=== PATIENT | female | born 1980 | race Two or more races ===

== ENCOUNTER 2024-09-06 21:42 | Emergency (ER) | payer OTHER ==
[~2024-09-06] VITALS: Ht 162.6 cm; Wt 106.8 kg
--- NOTE | 2024-09-06 22:45 | ED.PDOC ---
HPI Comments 44-year-old female presents with a chief complaint of chest pain x onset 1600 this afternoon. Patient states that her pain is localized to her left chest, non-radiating, describes as throbbing, and rates her pain a 5/10. Patient mentions that the onset of her chest pain began at 1600 this afternoon and is spontaneous in onset. Patient states that the pain is constant and is not exacerbated by movement. No other symptoms or modifying factors present at this time. Chief Complaint: Chest Pain Time Seen by MD: 21:59 Reviewed Notes: Medications, Allergies Allergies: Coded Allergies: NO KNOWN ALLERGIES (Unverified , 09/06/24) Home Meds Active Scripts Ibuprofen Micronized (Ibuprofen) 600 Mg Tab, 600 MG PO Q6HP PRN, #30 TAB Prov:SOFIYA CHRISTOPHER MD 09/07/24 Information Source: Patient Mode of Arrival: Ambulatory Severity: Moderate Timing: Hours Duration: Since onset Prehospital treatment: None Location: Chest (L) Radiation: No Radiation Quality: Sharp Onset: At Rest Cardiac Risk Factors: None PE Risk Factors: None History of: None Past Medical History PAST MEDICAL HISTORY: Kidney Stones 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 Family History Family History: Reviewed,noncontributory to illness Social History Smoker: Non-Smoker Alcohol: Denies ETOH Use Drugs: Denies Drug Use Lives In: Home Constitutional: denies: chills, diaphoresis, fatigue, fever, malaise, sweats, weakness, others EENTM: denies: blurred vision, double vision, ear bleeding, ear discharge, ear drainage, ear pain, ear ringing, eye pain, eye redness, hearing loss, mouth pain, mouth swelling, nasal discharge, nose bleeding, nose congestion, nose pain, photophobia, tearing, throat pain, throat swelling, voice changes, others Respiratory: denies: cough, hemoptysis, orthopnea, SOB at rest, shortness of breath, SOB with excertion, stridor, wheezing, others Cardiovascular: reports: chest pain; denies: dizzy spells, diaphoresis, Dyspnea on exertion, edema, irregular heart beat, left arm pain, lightheadedness, palpitations, PND, syncope, others Gastrointestinal: denies: abdomen distended, abdominal pain, blood streaked bowels, constipated, diarrhea, dysphagia, difficulty swallowing, hematemesis, melena, nausea, poor appetite, poor fluid intake, rectal bleeding, rectal pain, vomiting, others Genitourinary: denies: abnormal vagina bleeding, burning, dyspareunia, dysuria, flank pain, frequency, hematuria, incontinence, pain, , vagina discharge, urgency, others Neurological: denies: dizziness, fainting, headache, left sided numbness, left sided weakness, numbness, paresthesia, pre-existing deficit, right sided numbness, right sided weakness, seizure, speech problems, tingling, tremors, weakness, others Musculoskeletal: denies: back pain, gout, joint pain, joint swelling, muscle pain, muscle stiffness, neck pain, others Integumetry: denies: bruises, change in color, change in hair/nails, dryness, laceration, lesions, lumps, rash, wounds, others Allergic/Immunocompromised: denies: Difficulty Healing, Frequent Infections, Hives, Itching, others Hematologic/Lymphatic: denies: anemia, blood clots, easy bleeding, easy bruising, swollen glands, others Endocrine: denies: excessive hunger, excessive sweating, excessive thirst, excessive urination, flushing, intolerance to cold, intolerance to heat, unexplained weight gain, unexplained weight loss, others Psychiatric: denies: anxiety, bipolar disorder, depression, hopeless, panic disorder, schizophrenia, sleepless, suicidal, others All Other Systems: Reviewed and Negative Physical Exam General Appearance: No Apparent Distress HEENT: Normal ENT Inspection Neck: Full Range of Motion, Normal Inspection Respiratory: Lungs Clear, No Accessory Muscle Use, No Respiratory Distress, Normal Breath Sounds Cardiovascular: No Edema, No JVD, Regular Rate/Rhythm Breast Exam: Deferred Gastrointestinal: Non Tender, Soft Genitalia: Deferred Pelvic: Deferred Rectal: Deferred Extremities: No calf tenderness, Normal inspection, Normal range of motion, Non-tender, No pedal edema Neurologic: Alert, No Motor Deficits, Normal Affect, Normal Mood, No Sensory Deficits Cerebellar Function: NOT DONE Reflexes: NOT DONE Skin: Dry, Normal Color, Warm Lymphatic: NOT DONE EKG EKG : Comments Sinus rhythm, rate 91, normal intervals, normal axis, normal QRS, no ST/T changes. Was a procedure done? Was a procedure done?: No CP Differential Dx Differential Diagnosis: Angina, Anxiety / Panic Attack, Heart Failure, DE Differential Diagnosis: Chest Wall Pain, Esophageal reflux/spasm, Gastritis, Pericarditis, Pneumonia X-Ray, Labs, Meds, VS Vital Signs Date Time Temp Pulse Resp B/P (MAP) Pulse Ox O2 Delivery O2 Flow Rate FiO2 09/06/24 23:46 77 20 98 Room Air* 0 21 09/06/24 23:40 98.1 77 20 114/48 (70) 98 98.1 09/06/24 21:49 97.6 91 18 116/68 (84) 98 09/06/24 21:47 91 Lab Test 09/06/24 22:43 09/06/24 21:51 Range/Units Troponin I High Sensitivity < 3 L < 3 L </=34 ng/L White Blood Count 8.9 4.4-10.8 10^3/uL Red Blood Count 4.37 4.0-5.20 10^6/uL Hemoglobin 9.5 L 12.2-16.2 g/dL Hematocrit 31.1 L 36.0-46.0 % Mean Corpuscular Volume 71.2 L 80.0-100.0 fL Mean Corpuscular Hemoglobin 21.7 L 28.0-32.0 pg Mean Corpuscular Hemoglobin Concent 30.4 L 32.0-36.0 g/dL Red Cell Distribution Width 18.4 H 11.8-14.3 % Platelet Count 289 140-450 10^3/uL Mean Platelet Volume 8.6 6.9-10.8 fL Neutrophils (%) (Auto) 55.9 37.0-80.0 % Lymphocytes (%) (Auto) 34.3 10.0-50.0 % Monocytes (%) (Auto) 6.9 0.0-12.0 % Eosinophils (%) (Auto) 1.9 0.0-7.0 % Basophils (%) (Auto) 1.0 0.0-2.0 % Neutrophils # (Auto) 5.0 1.6-8.6 10 ^3/uL Lymphocytes # (Auto) 3.1 0.4-5.4 10 ^3/uL Monocytes # (Auto) 0.6 0-1.3 10 ^3/uL Eosinophils # (Auto) 0.2 0-0.8 10 ^3/uL Basophils # (Auto) 0.1 0-0.2 10 ^3/uL Nucleated Red Blood Cells 0.1 % Sodium Level 141 136-145 mmol/L Potassium Level 4.0 3.5-5.1 mmol/L Chloride Level 111 H 98-107 mmol/L Carbon Dioxide Level 27 20-31 mmol/L Anion Gap 3 L 5-15 Blood Urea Nitrogen 14 9-23 mg/dL Creatinine 0.62 0.550-1.02 mg/dL Glomerular Filtration Rate Calc 113 >90 mL/min BUN/Creatinine Ratio 22.6 H 10.0-20.0 Serum Glucose 109 H 74-106 mg/dL Calcium Level 11.9 H 8.7-10.4 mg/dL B-Type Natriuretic Peptide Pending Beta HCG, Quantitative < 0.0 L 1.5-4.2 mIU/mL Current Medications Medications (Trade) Dose Ordered Sig/Gary Route Start Time Stop Time Status Last Admin Aspirin 325 mg ONCE ONCE PO 09/06/24 22:45 09/06/24 22:46 DC 09/06/24 23:43 PROCEDURE(s): CXR1 - CHEST XRAY 1 VIEW REASON: cp ORDER NUMBER(s): [id number], ACCESSION NUMBER(s): [id number] EXAM: XY CHEST XRAY 1 VIEW CLINICAL HISTORY: cp TECHNIQUE: Single AP view of the chest WID: COMPARISON: None FINDINGS: Lines and tubes: None Chest: The heart size and pulmonary vasculature is within normal limits. No pleural effusion, pneumothorax, or consolidation. The osseous structures are grossly intact. IMPRESSION: No acute cardiopulmonary abnormality. X-Ray, Labs, Meds, VS Comment 44-year-old female with a history of kidney stones complaining of chest pain Vitals unremarkable Exam unremarkable EKG sinus rhythm, no ST/T changes Chest x-ray unremarkable CBC, CMP, hcg, BNP and 2 serial troponins unremarkable for any abnormality of acute significance Patient treated with the following in the ED: Aspirin 325 mg p.o, Toradol 60 mg IM On re-evaluation, patient was well-appearing, vitals were unremarkable. Heart score is 0. Workup is essentially unremarkable, and I am comfortable discharging the patient with close follow-up with her primary physician for referral to a educational director. Rx ibuprofen Time of 1ST Reevaluation: 22:29 Reevaluation 1ST: Unchanged Time of 2ND Reevaluation: 02:32 Reevaluation 2ND: Improved Patient Education/Counseling: Diagnosis, Treatment, Prognosis Family Education/Counseling: No Family Present Departure 1 Departure Time of Disposition: 02:31 Impression: Primary Impression: Chest pain Qualified Codes: R07.9 - Chest pain, unspecified Disposition: 01 HOME / SELF CARE / HOMELESS Condition: Stable Additional Instructions: Your blood tests, including heart tests were unremarkable. Your chest x-ray was normal. Your EKG was normal. Follow-up with primary doctor in 1-2 days for referral to a educational director for further evaluation of your chest pain. I have prescribed pain medication. e-Prescriptions Ibuprofen Micronized (Ibuprofen) 600 Mg Tab 600 MG PO Q6HP PRN, #30 TAB Prov: SOFIYA CHRISTOPHER MD 09/07/24 Discharged With: Self Critical Care Note Critical Care Time?: No Stability Stability form required: No Heart Score Heart Score: Heart Score Response (Comments) Value History Slightly Suspicious 0 EKG Normal 0 Age <45 0 Risk Factors No known risk factors 0 Troponin Normal limit 0 Total 0 I personally scribed for SOFIYA CHRISTOPHER MD ([email or web address]) on 09/06/24 at 2 2:45. Electronically submitted by Chandrakant Hinojosa ([email or web address]). SOFIYA CHRISTOPHER MD Sep 06, 2024 22:45
[2024-09-06] MEDS: ASPirin 325 MG TAB PO ONE (23:43)
[2024-09-06 23:46] VITALS: PULSE 77; RESP 20; O2SAT 98
--- NOTE | 2024-09-07 01:58 | DVH ---
EXAM: XY CHEST XRAY 1 VIEW CLINICAL HISTORY: cp TECHNIQUE: Single AP view of the chest WID: COMPARISON: None FINDINGS: Lines and tubes: None Chest: The heart size and pulmonary vasculature is within normal limits. No pleural effusion, pneumothorax, or consolidation. The osseous structures are grossly intact. IMPRESSION: No acute cardiopulmonary abnormality.
[2024-09-07] MEDS ORDERED: IBUP1TAB5 PO (02:34)
[2024-09-07 02:52] LABS: Chloride 111 mmol/L (98-107); Sodium 141 mmol/L (136-145)
[2024-09-07 02:53] LABS: Anion Gap 3 (5-15); Carbon Dioxide 27 mmol/L (20-31)
[2024-09-07 02:54] LABS: Calcium 11.9 mg/dL (8.7-10.4)
[2024-09-07 02:55] LABS: Basophils # (auto) 0.1 10 ^3/uL (0-0.2); Eosinophils # (auto) 0.2 10 ^3/uL (0-0.8); Eosinophils % (auto) 1.9 % (0.0-7.0); Hematocrit 31.1 % (36.0-46.0); Hemoglobin 9.5 g/dL (12.2-16.2); Lymphocytes # (auto) 3.1 10 ^3/uL (0.4-5.4); Lymphocytes % (auto) 34.3 % (10.0-50.0); Mean Corpuscular Hemoglobin 21.7 pg (28.0-32.0); Mean Corpuscular Hgb Conc. 30.4 g/dL (32.0-36.0); Mean Corpuscular Volume 71.2 fL (80.0-100.0); Monocytes # (auto) 0.6 10 ^3/uL (0-1.3); Monocytes % (auto) 6.9 % (0.0-12.0); Neutrophils % (auto) 55.9 % (37.0-80.0); Nucleated Red Blood Cells % 0.1 %; Platelet Count (auto) 289 10^3/uL (140-450); Red Blood Cells 4.37 10^6/uL (4.0-5.20); Red Cell Distribution Width 18.4 % (11.8-14.3); White Blood Cell 8.9 10^3/uL (4.4-10.8)
[2024-09-07 02:58] LABS: Glucose 109 mg/dL (74-106)
[2024-09-07 02:59] LABS: BUN/Creatinine Ratio 22.6 (10.0-20.0); Blood Urea Nitrogen 14 mg/dL (9-23)
[2024-09-07] MEDS: KETOROLAC TROMETH 60MG/2ML VIAL IM ONE (04:52)
[2024-09-07 04:53] VITALS: BP 106/51; PULSE 71; RESP 20; TEMP 98.9; O2SAT 98
--- NOTE | 2024-09-07 10:00 | ECG ---
[facility] Test Date: 2024-09-06 Test Time: 21:47:30 Pat Name: ALTHEA PETERSEN Department: ER Room: Gender: F Girls Tennis Coach: YUKI : 1980 Requested By: SOFIYA LABOY Order Number: [id number] Reading MD: Measurements Intervals [place] Rate: 91 P: 34 ID: [id number] QRS: 63 QRSD: 90 T: 32 QT: 346 QTc: 426 Interpretive Statements Sinus rhythm Low voltage, precordial leads Please click the below link to view image of tracing.
== END 2024-09-07 04:54 | disposition home or self-care (01) ==
LOC: ER 21:42
DX: R07.89 Other chest pain (principal); R10.2 Pelvic and perineal pain; Z87.442 Personal history of urinary calculi; Z98.890 Other specified postprocedural states
CPT/HCPCS: 36415; 71045; 80048; 83880; 84484; 84702; 85025; 93005; 96372

== ENCOUNTER 2025-07-26 10:23 | Inpatient (IN) | payer OTHER ==
[~2025-07-26] VITALS: Ht 162.6 cm; Wt 96.3 kg
[2025-07-26 01:00] VITALS: BP 105/50; PULSE 87; RESP 18; TEMP 98.6; O2SAT 97
[~2025-07-26 10:23] MED LIST: IBUP1TAB5 PO
--- NOTE | 2025-07-26 10:40 | ED.PDOC ---
GI ASSESSMENT HPI Comments 44 y/o F, with PMHx of kidney stones presents to the ED for CC of abdominal pain. Patient states, she has been experiencing diffuse abdominal pain with associated symptoms of nausea/vomiting sudden onset, this morning (07/26/25). Patient denies recent change in diet, fever, chills, or diarrhea. No other symptoms or modifying factors are present at this time. Chief Complaint: Abdominal Pain Time Seen by MD: 10:30 Reviewed Notes: Nurses Notes, Medications, Allergies Allergies: Coded Allergies: NO KNOWN ALLERGIES (Unverified , 09/06/24) Home Meds Active Scripts Ibuprofen Micronized (Ibuprofen) 600 Mg Tab, 600 MG PO Q6HP PRN, #30 TAB Prov:SOFIYA CHRISTOPHER MD 09/07/24 Information Source: Patient Mode of Arrival: Ambulatory Timing: Hours Duration: Since onset Prehospital treatment: None Vomitus: Watery Stool: Normal Severity: Moderate Recent: None Recent Hx of: None Pain Location: Diffuse Modifying Factors: Nothing Associated sign and symptoms: Nausea, Vomiting, Abdominal Pain Past Medical History PAST MEDICAL HISTORY: Kidney Stones 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 Family History Family History: Reviewed,noncontributory to illness Social History Smoker: Non-Smoker Alcohol: Denies ETOH Use Drugs: Denies Drug Use Lives In: Home Constitutional: denies: chills, diaphoresis, fatigue, fever, malaise, sweats, weakness, others EENTM: denies: blurred vision, double vision, ear bleeding, ear discharge, ear drainage, ear pain, ear ringing, eye pain, eye redness, hearing loss, mouth pain, mouth swelling, nasal discharge, nose bleeding, nose congestion, nose pain, photophobia, tearing, throat pain, throat swelling, voice changes, others Respiratory: denies: cough, hemoptysis, orthopnea, SOB at rest, shortness of breath, SOB with excertion, stridor, wheezing, others Cardiovascular: denies: chest pain, dizzy spells, diaphoresis, Dyspnea on exertion, edema, irregular heart beat, left arm pain, lightheadedness, palpitations, PND, syncope, others Gastrointestinal: reports: abdominal pain, nausea, vomiting; denies: abdomen distended, blood streaked bowels, constipated, diarrhea, dysphagia, difficulty swallowing, hematemesis, melena, poor appetite, poor fluid intake, rectal bleeding, rectal pain, others Genitourinary: denies: abnormal vagina bleeding, burning, dyspareunia, dysuria, flank pain, frequency, hematuria, incontinence, pain, , vagina discharge, urgency, others Neurological: denies: dizziness, fainting, headache, left sided numbness, left sided weakness, numbness, paresthesia, pre-existing deficit, right sided numbness, right sided weakness, seizure, speech problems, tingling, tremors, weakness, others Musculoskeletal: denies: back pain, gout, joint pain, joint swelling, muscle pain, muscle stiffness, neck pain, others Integumetry: denies: bruises, change in color, change in hair/nails, dryness, laceration, lesions, lumps, rash, wounds, others Allergic/Immunocompromised: denies: Difficulty Healing, Frequent Infections, Hives, Itching, others Hematologic/Lymphatic: denies: anemia, blood clots, easy bleeding, easy bruising, swollen glands, others Endocrine: denies: excessive hunger, excessive sweating, excessive thirst, excessive urination, flushing, intolerance to cold, intolerance to heat, unexplained weight gain, unexplained weight loss, others Psychiatric: denies: anxiety, bipolar disorder, depression, hopeless, panic disorder, schizophrenia, sleepless, suicidal, others All Other Systems: Reviewed and Negative Physical Exam General Appearance: Moderate Distress HEENT: Normal ENT Inspection, Pharynx Normal, TMs Normal Neck: Full Range of Motion, Non-Tender, Normal, Normal Inspection Respiratory: Chest Non-Tender, Lungs Clear, No Accessory Muscle Use, No Respiratory Distress, Normal Breath Sounds Cardiovascular: No Edema, No JVD, No Murmur, No Gallop, Normal Peripheral Pulses, Regular Rate/Rhythm Breast Exam: Deferred Gastrointestinal: No Organomegaly, Non Tender, No Pulsatile Mass, Normal Bowel Sounds, Soft Genitalia: Deferred Pelvic: Deferred Rectal: Deferred Extremities: No calf tenderness, Normal capillary refill, Normal inspection, Normal range of motion, Non-tender, No pedal edema Musculoskeletal : Apperance: Normal Neurologic: Alert, income auditor II-XII nml as Tested, No Motor Deficits, Normal Affect, Normal Mood, No Sensory Deficits Cerebellar Function: Normal Reflexes: Normal Skin: Dry, Normal Color, Warm Peripheral Pulses: 3+ Radial (R), 3+ Radial (L) Lymphatic: No Adenopathy Was a procedure done? Was a procedure done?: No GI differential Dx Differential Diagnosis: Constipation, Diverticular disease, Esophagitis, Gastri tis/PUD, Gastroenteritis, Electrolyte Imbalance, Food Poisoning, Bacterial, Viral X-Ray, Labs, Meds, VS Vital Signs Date Time Temp Pulse Resp B/P (MAP) Pulse Ox O2 Delivery O2 Flow Rate FiO2 07/26/25 14:19 98.3 76 16 97/49 (65) 100 98.3 07/26/25 12:15 97.9 75 16 109/47 (67) 100 97.9 07/26/25 10:45 73 16 95 Room Air* 0 21 07/26/25 10:45 98.7 73 16 104/50 (68) 95 98.7 07/26/25 10:24 98.1 96 19 106/67 85 98.1 Lab Test 07/26/25 12:01 07/26/25 11:00 Range/Units Urine Color Light-yellow Yellow Urine Clarity Turbid H Clear Urine pH 5.5 5.0-9.0 Urine Specific [place] 1.018 1.001-1.035 Urine Protein 1+ H Negative Urine Ketones Negative Negative Urine Blood 3+ H Negative /uL Urine Nitrite 2+ H Negative Urine Bilirubin Negative Negative Urine Urobilinogen Normal Negative mg/dL Urine Leukocyte Esterase 3+ Negative /uL Urine RBC 65 0 - 4 /hpf Urine Microscopic WBC 88 H 0-5 /HPF Urine Squamous Epithelial Cells Few <5 /hpf Urine Calcium Oxalate Crystals Few None Seen Urine Bacteria Mod H None Seen /hpf Urine Mucus Few None Seen Urine Glucose Normal Normal mg/dL White Blood Count 7.9 4.4-10.8 10^3/uL Red Blood Count 4.47 4.0-5.20 10^6/uL Hemoglobin 9.1 L 12.2-16.2 g/dL Hematocrit 29.9 L 36.0-46.0 % Mean Corpuscular Volume 67.0 L 80.0-100.0 fL Mean Corpuscular Hemoglobin 20.4 L 28.0-32.0 pg Mean Corpuscular Hemoglobin Concent 30.5 L 32.0-36.0 g/dL Red Cell Distribution Width 18.1 H 11.8-14.3 % Platelet Count 249 140-450 10^3/uL Mean Platelet Volume 8.3 6.9-10.8 fL Neutrophils (%) (Auto) 85.7 H 37.0-80.0 % Lymphocytes (%) (Auto) 9.8 L 10.0-50.0 % Monocytes (%) (Auto) 3.7 0.0-12.0 % Eosinophils (%) (Auto) 0.3 0.0-7.0 % Basophils (%) (Auto) 0.5 0.0-2.0 % Neutrophils # (Auto) 6.8 1.6-8.6 10 ^3/uL Lymphocytes # (Auto) 0.8 0.4-5.4 10 ^3/uL Monocytes # (Auto) 0.3 0-1.3 10 ^3/uL Eosinophils # (Auto) 0 0-0.8 10 ^3/uL Basophils # (Auto) 0 0-0.2 10 ^3/uL Nucleated Red Blood Cells 0.0 % Sodium Level 142 136-145 mmol/L Potassium Level 3.6 3.5-5.1 mmol/L Chloride Level 107 98-107 mmol/L Carbon Dioxide Level 25 20-31 mmol/L Anion Gap 10 5-15 Blood Urea Nitrogen 9 9-23 mg/dL Creatinine 0.68 0.550-1.02 mg/dL Glomerular Filtration Rate Calc 111 >90 mL/min BUN/Creatinine Ratio 13.2 10.0-20.0 Serum Glucose 104 74-106 mg/dL Calcium Level 11.3 H 8.7-10.4 mg/dL Current Medications Medications (Trade) Dose Ordered Sig/Gary Route Start Time Stop Time Status Last Admin Ketorolac Tromethamine (Toradol Injection) 30 mg ONCE ONCE IV 07/26/25 11:00 07/26/25 11:02 DC 07/26/25 11:19 Sodium Chloride 1,000 ml @ 1,000 mls/hr Q1H ONCE IV 07/26/25 11:00 07/26/25 11:59 DC 07/26/25 11:11 Ceftriaxone Sodium 50 ml @ 100 mls/hr ONCE ONCE IV 07/26/25 13:15 07/26/25 13:44 DC 07/26/25 14:35 Sodium Chloride 1,000 ml @ 1,000 mls/hr Q1H ONCE IV 07/26/25 13:15 07/26/25 14:14 DC 07/26/25 14:16 Patient alert. Complaining of flank pain. History of kidney stones. Vitals stable. Answering questions. Ambulating. Abdomen is soft nontender. Establish intravenous access. Was given fluids. Was given Toradol. UA shows UTI. Was given Rocephin. Explained to the patient. Continue monitoring. Time of 1ST Reevaluation: 11:00 Reevaluation 1ST: Unchanged Patient Education/Counseling: Diagnosis, Treatment Family Education/Counseling: No Family Present SEPSIS Sepsis Screen Date sepsis recognized/suspect: Jul 26, 2025 Time Sepsis recognized/suspect: 1024 Recent Procedure: No On Antibiotic Therapy: No Respiratory Rate >20: No Heart Rate >90: No Temp<36 C (96.8 F) or >38.3 C: No SBP <90 or MAP <65 mmHG: No New Acute Mental Status Change: No Is the patient on CPAP, BIPAP,: No Physician Orders Ct Ab Pel Wo Con-No Oral Or Iv (07/26/25 13:10) Urine Bacterial Culture (07/26/25 13:10) Vital Signs Date Time Temp Pulse Resp B/P (MAP) Pulse Ox O2 Delivery O2 Flow Rate FiO2 07/26/25 14:19 98.3 76 16 97/49 (65) 100 98.3 07/26/25 12:15 97.9 75 16 109/47 (67) 100 97.9 07/26/25 10:45 73 16 95 Room Air* 0 21 07/26/25 10:45 98.7 73 16 104/50 (68) 95 98.7 07/26/25 10:24 98.1 96 19 106/67 85 98.1 Laboratory Tests Test 07/26/25 11:00 White Blood Count 7.9 10^3/uL (4.4-10.8) Medications Medications Dose Ordered Sig/Gary Route Start Time Stop Time Status Last Admin Dose Admin Ceftriaxone Sodium 50 ml @ 100 mls/hr ONCE ONCE IV 07/26/25 13:15 07/26/25 13:44 DC 07/26/25 14:35 Ketorolac Tromethamine 30 mg ONCE ONCE IV 07/26/25 11:00 07/26/25 11:02 DC 07/26/25 11:19 Sodium Chloride 1,000 ml @ 1,000 mls/hr Q1H ONCE IV 07/26/25 11:00 07/26/25 11:59 DC 07/26/25 11:11 Sodium Chloride 1,000 ml @ 1,000 mls/hr Q1H ONCE IV 07/26/25 13:15 07/26/25 14:14 DC 07/26/25 14:16 Departure 1 Departure Time of Disposition: 11:07 Impression: Primary Impression: Sepsis due to urinary tract infection Disposition: ADMITTED INPATIENT Admit to: Med Surg Condition: Guarded Critical Care Note Critical Care Time?: No Stability Stability form required: No Heart Score Heart Score: Heart Score Response (Comments) Value History N/A 0 EKG N/A 0 Age N/A 0 Risk Factors N/A 0 Troponin N/A 0 Total 0 I personally scribed for PARTH VEGA MD ([email or web address]) on 07/26/25 at 10:40. Electronically submitted by Heather Hameed ([email or web address]). PARTH VEGA MD Jul 26, 2025 10:40
[2025-07-26 10:45] VITALS: PULSE 73; RESP 16; O2SAT 95
[2025-07-26] MEDS: SODIUM CHLORIDE 0.9% 1,000 ML IV ONE ×2 (11:11→14:16)
[2025-07-26] MEDS: KETOROLAC TROMETH 30 MG/ML 1ML VIAL IV ONE (11:19)
[2025-07-26 11:20] LABS: Hematocrit 29.9 % (36.0-46.0); Mean Corpuscular Hemoglobin 20.4 pg (28.0-32.0); Nucleated Red Blood Cells % 0.0 %
[2025-07-26 11:21] LABS: Hemoglobin 9.1 g/dL (12.2-16.2); Mean Corpuscular Volume 67.0 fL (80.0-100.0)
[2025-07-26 11:26] LABS: Potassium 3.6 mmol/L (3.5-5.1); Sodium 142 mmol/L (136-145)
[2025-07-26 11:27] LABS: Anion Gap 10 (5-15); Carbon Dioxide 25 mmol/L (20-31)
[2025-07-26 11:30] LABS: Calcium 11.3 mg/dL (8.7-10.4); Chloride 107 mmol/L (98-107)
[2025-07-26 11:32] LABS: BUN/Creatinine Ratio 13.2 (10.0-20.0); Blood Urea Nitrogen 9 mg/dL (9-23); Glucose 104 mg/dL (74-106)
[2025-07-26 12:40] LABS: Urine Protein, UAD 1+ (Negative)
--- NOTE | 2025-07-26 14:29 | DVH ---
CLINICAL INFORMATION: Renal stone. TECHNIQUE: Axial CT images of the abdomen and pelvis were obtained without IV contrast. Coronal and s agittal reformatted images were obtained, reviewed, and stored. Evaluation of the parenchymal organs is limited without IV contrast. Evaluation of the bowel and mesentery is limited without oral contras t. All CT scans at this medical facility are performed using dose modulation techniques as appropriat e to a performed exam including the following: Automated exposure control was utilized; adjustment of the MA and/or KV according to patient size; and use of iterative reconstruction technique. CTDIvol = 24.47 mGy DLP = 1428.44 mGy-cm COMPARISON: None FINDINGS: Lung bases: Nonspecific ground-glass attenuation in the lung bases, may be infectious or inflammatory in nature. No dense focal consolidation demonstrated. Liver: Grossly unremarkable in its noncontrast enhanced appearance. No abnormal density or focal lesi on identified. Biliary: Multiple calcified gallstones within the gallbladder. Gallbladder is mildly to moderately di stended. Spleen: Unremarkable. Pancreas: Grossly unremarkable in its noncontrast enhanced appearance. Adrenal glands: 2.2 cm left adrenal nodule with density consistent with a benign lipid rich adenoma. Kidneys: There are small bilateral nonobstructing renal calculi. There is mild left hydronephrosis an d hydroureter with no obstructing calculus visualized. Aorta/Vascular: No aneurysm or significant calcification. Lymph nodes: No mass or lymphadenopathy. Bowel/mesentery: No small bowel obstruction. No free air or free fluid. Appendix is visualized and ap pears unremarkable. Pelvic organs: Grossly unremarkable. Bladder: Unremarkable. No mass. Abdominal wall: No mass or hernia. Bones: No acute fracture or suspicious intraosseous lesion. IMPRESSION: 1. Mild left hydronephrosis and hydroureter with no obstructing calculus visualized. May be due to re cently passed calculus, although no visualized calculi in the bladder. Correlate with clinical findin gs. 2. Bilateral nonobstructing renal calculi. 3. Cholelithiasis with mildly to moderately distended gallbladder. If clinically indicated, ultrasoun d could be obtained to further evaluate. 4. Additional findings as described above.
--- NOTE | 2025-07-26 15:55 | DVHHP2 ---
Admitting Diagnosis: Dizziness and left flank pain History of Present Illness 44 yo female patient came in for dizziness and left flank pain related to nephritis. She was found to be septic with septic shock. She was started on IV fluids and given 3 L of IV fluid bolus. Patient was initiated on IV antibiotics and admitted for further observation and monitoring. While in the emergency department the patient was evaluated by the provider, As per provider: Labs, vital signs, and imagining monitored. Patient will be admitted for further evaluation and treatment. I discussed admission with the patient/family and is in agreement to treatment plan. Allergies: Coded Allergies: NO KNOWN ALLERGIES (Unverified , 09/06/24) Home Meds Active Scripts Ibuprofen Micronized (Ibuprofen) 600 Mg Tab, 600 MG PO Q6HP PRN, #30 TAB Prov:SOFIYA CHRISTOPHER MD 09/07/24 Current Medications Current Medications Medications (Trade) Dose Ordered Sig/Gary Route PRN Reason Start Time Stop Time Status Last Admin Sodium Chloride 1,000 ml @ 120 mls/hr Q8H20M IV 07/26/25 16:00 Acetaminophen/ Hydrocodone Bitart ([facility] 5/325MG Tab) 1 tab Q4HP PRN PO MODERATE PAIN (4-6 PAIN SCALE) 07/26/25 16:00 Temazepam (Restoril) 15 mg QHSP PRN PO FOR INSOMNIA 07/26/25 16:00 Ondansetron HCl (Zofran) 4 mg Q4HP PRN IV NAUSEA / VOMITING 07/26/25 16:00 Docusate Sodium (Colace Capsule) 100 mg BIDPRN PRN PO FOR CONSTIPATION 07/26/25 16:00 Enoxaparin Sodium (Lovenox) 40 mg DAILY SC 07/27/25 10:00 Acetaminophen (Tylenol Tablet) 650 mg Q6HP PRN PO PAIN SCALE 1-3 OR TEMP>100.4 07/26/25 16:00 Morphine Sulfate 2 mg Q4HPRN PRN IV SEVERE PAIN (7-10 PAIN SCALE) 07/26/25 16:00 Ceftriaxone Sodium 50 ml @ 100 mls/hr DAILY IV 07/27/25 10:00 Famotidine (Pepcid Tablet) 40 mg DAILY PO 07/26/25 16:14 07/26/25 17:22 Review of Systems Constitutional: denies chills, denies fever, denies malaise Eyes: denies eye pain, denies vision change ENT: denies ear pain, denies headache, denies nasal congestion, denies painful swallowing, denies voice change Cardiovascular: denies chest pain, denies edema, denies orthopnea, denies palpitations, denies paroxysmal nocturnal dyspnea Respiratory: denies cough, denies shortness of breath Gastrointestinal: denies constipation, denies diarrhea, denies nausea, denies vomiting Genitourinary: denies dysuria, denies frequent urination, denies urethral discharge Musculoskeletal: denies back pain, denies joint pain, denies muscle pain Skin: denies bruising, denies itching, denies rash Neurological: denies focal weakness, denies headache, denies sensory changes Psychiatric: denies anxiety, denies depression Endocrine: denies polydipsia, denies polyuria Hematologic/Lymphatic: denies easy bleeding, denies easy bruising, denies enlarged lymph nodes Allergic/Immunologic: denies allergy, denies hives Vital Signs Vital Signs Date Time Temp Pulse Resp B/P (MAP) Pulse Ox O2 Delivery O2 Flow Rate FiO2 07/26/25 17:38 97.1 69 16 105/40 (61) 100 97.1 07/26/25 17:38 Room Air* 0 21 Physical Exam General Appearance: alert, no distress HEENT: EOMI, PERRLA, normal external inspect of ears, no icterus, no nasal drainage Neck: no carotid bruit, no jugular venous distention (JVD), no lymphadenopathy Chest: normal thorax Respiratory: clear to auscultation, normal air movement Cardiovascular: regular rate and rhythm, no diastolic murmur, no jugular venous distention (JVD), no rub, no systolic murmur Abdominal: soft, no hepatomegaly, no mass, no splenomegaly, no tenderness Genitourinary: grossly normal external Musculoskeletal: no joint tenderness, no swelling Extremities: normal pulses, no calf tenderness, no clubbing, no cyanosis, no e bianka Skin: no bruising, no jaundice, no rash Neurological: alert, No focal deficit SEPSIS Sepsis Screen Date sepsis recognized/suspect: Jul 26, 2025 Time Sepsis recognized/suspect: 1044 Recent Procedure: No On Antibiotic Therapy: No Respiratory Rate >20: No Heart Rate >90: No Temp<36 C (96.8 F) or >38.3 C: No SBP <90 or MAP <65 mmHG: No New Acute Mental Status Change: No Is the patient on CPAP, BIPAP,: No Physician Orders Ct Ab Pel Wo Con-No Oral Or Iv (07/26/25 13:10) Urine Bacterial Culture (07/26/25 13:10) Admit (07/26/25 15:50) Code Status (07/26/25 15:50) Sodium Chloride 0.9% (07/26/25 16:00) Hydrocodone-Acet 5/325mg Tab ([facility] 5/32 (07/26/25 16:00) Temazepam (Restoril) (07/26/25 16:00) Ondansetron Hcl (Zofran) (07/26/25 16:00) Docusate Sodium Capsule (Colace Capsule) (07/26/25 16:00) Enoxaparin Sodium (Lovenox) (07/27/25 10:00) Complete Blood Count (07/27/25 04:00) Comprehensive Metabolic Panel (07/27/25 04:00) Cardiac Diet-2gna,Lofat,Lochol (07/26/25 Dinner) Acetaminophen Tablet (Tylenol Tablet) (07/26/25 16:00) Ceftriaxone 1gm/50ml (Rocephin) (07/27/25 10:00) Sequential Compression Device (07/26/25 15:54) Morphine Sulfate Injection (07/26/25 16:00) Famotidine Tablet (Pepcid Tablet) (07/26/25 16:14) Hemoglobin A1c (07/27/25 04:00) Vital Signs Date Time Temp Pulse Resp B/P (MAP) Pulse Ox O2 Delivery O2 Flow Rate FiO2 07/26/25 17:38 97.1 69 16 105/40 (61) 100 97.1 07/26/25 17:38 97.1 69 16 105/42 (63) 100 97.1 07/26/25 17:38 69 16 100 Room Air* 0 21 07/26/25 16:56 65 14 106/58 (74) 98 07/26/25 16:32 98.1 79 14 101/48 (65) 98 98.1 07/26/25 16:20 79 15 98 Room Air* 0 21 07/26/25 16:04 68 13 102/30 (54) 100 07/26/25 14:19 98.3 76 16 97/49 (65) 100 98.3 07/26/25 12:15 97.9 75 16 109/47 (67) 100 97.9 07/26/25 10:45 73 16 95 Room Air* 0 21 07/26/25 10:45 98.7 73 16 104/50 (68) 95 98.7 07/26/25 10:24 98.1 96 19 106/67 85 98.1 Laboratory Tests Test 07/26/25 11:00 White Blood Count 7.9 10^3/uL (4.4-10.8) Medications Medications Dose Ordered Sig/Gary Route Start Time Stop Time Status Last Admin Dose Admin Ceftriaxone Sodium 50 ml @ 100 mls/hr ONCE ONCE IV 07/26/25 13:15 07/26/25 13:44 DC 07/26/25 14:35 Famotidine 40 mg DAILY PO 07/26/25 16:14 07/26/25 17:22 Ketorolac Tromethamine 30 mg ONCE ONCE IV 07/26/25 11:00 07/26/25 11:02 DC 07/26/25 11:19 Sodium Chloride 1,000 ml @ 1,000 mls/hr Q1H ONCE IV 07/26/25 11:00 07/26/25 11:59 DC 07/26/25 11:11 Sodium Chloride 1,000 ml @ 1,000 mls/hr Q1H ONCE IV 07/26/25 13:15 07/26/25 14:14 DC 07/26/25 14:16 Sodium Chloride 2,000 ml @ 1,000 mls/hr Q2H ONCE IV 07/26/25 17:15 07/26/25 19:14 DC 07/26/25 17:31 Results Labs Test 07/26/25 12:01 07/26/25 11:00 Range/Units Urine Color Light-yellow Yellow Urine Clarity Turbid H Clear Urine pH 5.5 5.0-9.0 Urine Specific [employer] 1.018 1.001-1.035 Urine Protein 1+ H Negative Urine Ketones Negative Negative Urine Blood 3+ H Negative /uL Urine Nitrite 2+ H Negative Urine Bilirubin Negative Negative Urine Urobilinogen Normal Negative mg/dL Urine Leukocyte Esterase 3+ Negative /uL Urine RBC 65 0 - 4 /hpf Urine Microscopic WBC 88 H 0-5 /HPF Urine Squamous Epithelial Cells Few <5 /hpf Urine Calcium Oxalate Crystals Few None Seen Urine Bacteria Mod H None Seen /hpf Urine Mucus Few None Seen Urine Glucose Normal Normal mg/dL White Blood Count 7.9 4.4-10.8 10^3/uL Red Blood Count 4.47 4.0-5.20 10^6/uL Hemoglobin 9.1 L 12.2-16.2 g/dL Hematocrit 29.9 L 36.0-46.0 % Mean Corpuscular Volume 67.0 L 80.0-100.0 fL Mean Corpuscular Hemoglobin 20.4 L 28.0-32.0 pg Mean Corpuscular Hemoglobin Concent 30.5 L 32.0-36.0 g/dL Red Cell Distribution Width 18.1 H 11.8-14.3 % Platelet Count 249 140-450 10^3/uL Mean Platelet Volume 8.3 6.9-10.8 fL Neutrophils (%) (Auto) 85.7 H 37.0-80.0 % Lymphocytes (%) (Auto) 9.8 L 10.0-50.0 % Monocytes (%) (Auto) 3.7 0.0-12.0 % Eosinophils (%) (Auto) 0.3 0.0-7.0 % Basophils (%) (Auto) 0.5 0.0-2.0 % Neutrophils # (Auto) 6.8 1.6-8.6 10 ^3/uL Lymphocytes # (Auto) 0.8 0.4-5.4 10 ^3/uL Monocytes # (Auto) 0.3 0-1.3 10 ^3/uL Eosinophils # (Auto) 0 0-0.8 10 ^3/uL Basophils # (Auto) 0 0-0.2 10 ^3/uL Nucleated Red Blood Cells 0.0 % Sodium Level 142 136-145 mmol/L Potassium Level 3.6 3.5-5.1 mmol/L Chloride Level 107 98-107 mmol/L Carbon Dioxide Level 25 20-31 mmol/L Anion Gap 10 5-15 Blood Urea Nitrogen 9 9-23 mg/dL Creatinine 0.68 0.550-1.02 mg/dL Glomerular Filtration Rate Calc 111 >90 mL/min BUN/Creatinine Ratio 13.2 10.0-20.0 Serum Glucose 104 74-106 mg/dL Calcium Level 11.3 H 8.7-10.4 mg/dL Plan 1. Sepsis Monitor, IV abx, daily labs 2. Septic Shock Monitor, fluid resuscitation 3. Pyelonephritis Monitor, IV abx prn pain meds 4. Obesity Monitor, cardiac diet, hgb A1C, lipid panel Plan discussed with: Patient, Other DIMITRI JIMENEZ REHABILITATION AIDE Jul 26, 2025 15:55
[2025-07-26] MEDS ORDERED: TEMAZEPAM 15 MG CAP PO PRN (16:00)
[2025-07-26] MEDS ORDERED: ACETAMINOPHEN 325 MG TAB PO PRN (16:00)
[2025-07-26] MEDS ORDERED: MORPHINE SULFATE 4 MG/ML SYR/VIAL IV PRN (16:00)
[2025-07-26] MEDS ORDERED: HYDROcodone-ACET 5/325MG TAB PO PRN (16:00)
[2025-07-26] MEDS ORDERED: ONDANSETRON HCL 4 MG/2 ML VIAL IV PRN (16:00)
[2025-07-26] MEDS ORDERED: DOCUSATE SOD 100 MG CAP PO PRN (16:00)
[2025-07-26 16:20] VITALS: PULSE 79; RESP 15; O2SAT 98
[2025-07-26] MEDS: FAMOTIDINE 20 MG TAB PO SCH (17:22)
[2025-07-26] MEDS: SODIUM CHLORIDE 0.9% 2,000 ML IV ONE (17:31)
[2025-07-26 17:38] VITALS: BP_SYST 105; BP_DIAS 40; BP_DIAS 42; PULSE 69; RESP 16; TEMP 97.1; O2SAT 100
[2025-07-26 21:00] VITALS: BP 115/66; PULSE 77; RESP 18; TEMP 98.1; O2SAT 98
[2025-07-26] MEDS: SODIUM CHLORIDE 0.9% 1,000 ML IV SCH (21:45)
[2025-07-27 05:00] VITALS: BP 110/65; PULSE 85; RESP 18; TEMP 98.1; O2SAT 96
[2025-07-27 05:44] LABS: Hematocrit 24.7 % (36.0-46.0); Hemoglobin 7.6 g/dL (12.2-16.2); Mean Corpuscular Hemoglobin 20.4 pg (28.0-32.0); Mean Corpuscular Volume 66.5 fL (80.0-100.0); Nucleated Red Blood Cells % 0.1 %
[2025-07-27 06:04] LABS: Alanine Aminotransferase 13 U/L (7-40); Albumin 3.5 g/dL (3.2-4.8); Alkaline Phosphatase 88 U/L (46-116); Anion Gap 8 (5-15); Bilirubin, Total 0.9 mg/dL (0.2-1.0); Calcium 10.3 mg/dL (8.7-10.4); Carbon Dioxide 24 mmol/L (20-31); Glucose 93 mg/dL (74-106); Potassium 4.0 mmol/L (3.5-5.1); Sodium 143 mmol/L (136-145); Total Protein 6.3 g/dL (5.7-8.2)
[2025-07-27 06:08] LABS: BUN/Creatinine Ratio 10.2 (10.0-20.0); Blood Urea Nitrogen < 5 mg/dL (9-23); Chloride 111 mmol/L (98-107)
[2025-07-27 08:00] VITALS: PULSE 82; RESP 18; O2SAT 100
[2025-07-27 09:00] VITALS: BP 97/57; PULSE 82; RESP 18; TEMP 98.3; O2SAT 100
[2025-07-27] MEDS: ENOXAPARIN SOD 40 MG/0.4 ML SYRINGE SC SCH (11:04)
--- NOTE | 2025-07-27 11:48 | DVHPN2 ---
Progress Note - Dictate vital signs Vital Sign Date Time Temp Pulse Resp B/P (MAP) Pulse Ox O2 Delivery O2 Flow Rate FiO2 07/27/25 09:00 98.3 82 18 97/57 (70) 100 98.3 07/26/25 20:00 Room Air* 0 21 Total Intake and Output 07/26/25 07/26/25 07/27/25 15:00 23:00 07:00 Intake Total 1000 ml 350 ml Balance 1000 ml 350 ml medications Current Medications Medications Dose Ordered Sig/Gary Route Start Time Stop Time Status Last Admin Dose Admin Sodium Chloride 1,000 ml @ 120 mls/hr Q8H20M IV 07/26/25 16:00 07/27/25 08:48 120 MLS/HR Acetaminophen/ Hydrocodone Bitart 1 tab Q4HP PRN PO 07/26/25 16:00 Temazepam 15 mg QHSP PRN PO 07/26/25 16:00 Ondansetron HCl 4 mg Q4HP PRN IV 07/26/25 16:00 Docusate Sodium 100 mg BIDPRN PRN PO 07/26/25 16:00 Enoxaparin Sodium 40 mg DAILY SC 07/27/25 10:00 07/27/25 11:04 40 MG Acetaminophen 650 mg Q6HP PRN PO 07/26/25 16:00 Morphine Sulfate 2 mg Q4HPRN PRN IV 07/26/25 16:00 Ceftriaxone Sodium 50 ml @ 100 mls/hr DAILY IV 07/27/25 10:00 07/27/25 11:05 100 MLS/HR Famotidine 40 mg DAILY PO 07/26/25 16:14 07/27/25 11:05 40 MG laboratory and microbiology Laboratory Tests 07/27/25 05:25 Test 07/27/25 05:25 Range/Units Serum Glucose 93 74-106 mg/dL DIMITRI JIMENEZ [employer] Jul 27, 2025 11:48
[2025-07-27 12:38] VITALS: BP 105/54; PULSE 96; RESP 18; TEMP 98.4; O2SAT 97
[2025-07-27] MEDS ORDERED: CIPR-173 PO (12:42)
--- NOTE | 2025-07-27 12:43 | DVHDS2 ---
Discharge Summary Date of Admission Jul 26, 2025 at 15:50 Date of Discharge: Jul 27, 2025 Labs/Diagnostic Data: Laboratory Results Test 07/27/25 05:25 07/26/25 12:01 White Blood Count 6.5 10^3/uL (4.4-10.8) Red Blood Count 3.72 10^6/uL (4.0-5.20) Hemoglobin 7.6 g/dL (12.2-16.2) Hematocrit 24.7 % (36.0-46.0) Mean Corpuscular Volume 66.5 fL (80.0-100.0) Mean Corpuscular Hemoglobin 20.4 pg (28.0-32.0) Mean Corpuscular Hemoglobin Concent 30.7 g/dL (32.0-36.0) Red Cell Distribution Width 18.1 % (11.8-14.3) Platelet Count 199 10^3/uL (140-450) Mean Platelet Volume 8.4 fL (6.9-10.8) Neutrophils (%) (Auto) 64.7 % (37.0-80.0) Lymphocytes (%) (Auto) 25.5 % (10.0-50.0) Monocytes (%) (Auto) 8.4 % (0.0-12.0) Eosinophils (%) (Auto) 0.8 % (0.0-7.0) Basophils (%) (Auto) 0.6 % (0.0-2.0) Neutrophils # (Auto) 4.2 10 ^3/uL (1.6-8.6) Lymphocytes # (Auto) 1.6 10 ^3/uL (0.4-5.4) Monocytes # (Auto) 0.5 10 ^3/uL (0-1.3) Eosinophils # (Auto) 0.1 10 ^3/uL (0-0.8) Basophils # (Auto) 0 10 ^3/uL (0-0.2) Nucleated Red Blood Cells 0.1 % Sodium Level 143 mmol/L (136-145) Potassium Level 4.0 mmol/L (3.5-5.1) Chloride Level 111 mmol/L (98-107) Carbon Dioxide Level 24 mmol/L (20-31) Anion Gap 8 (5-15) Blood Urea Nitrogen < 5 mg/dL (9-23) Creatinine 0.49 mg/dL (0.550-1.02) Glomerular Filtration Rate Calc 120 mL/min (>90) BUN/Creatinine Ratio 10.2 (10.0-20.0) Serum Glucose 93 mg/dL (74-106) Hemoglobin A1c 5.5 % A1C (<5.7) Calcium Level 10.3 mg/dL (8.7-10.4) Total Bilirubin 0.9 mg/dL (0.2-1.0) Aspartate Amino Transferase (AST) 15 U/L (13-40) Alanine Aminotransferase (ALT) 13 U/L (7-40) Alkaline Phosphatase 88 U/L (46-116) Total Protein 6.3 g/dL (5.7-8.2) Albumin 3.5 g/dL (3.2-4.8) Urine Color Light-yellow (Yellow) Urine Clarity Turbid (Clear) Urine pH 5.5 (5.0-9.0) Urine Specific [place] 1.018 (1.001-1.035) Urine Protein 1+ (Negative) Urine Ketones Negative (Negative) Urine Blood 3+ /uL (Negative) Urine Nitrite 2+ (Negative) Urine Bilirubin Negative (Negative) Urine Urobilinogen Normal mg/dL (Negative) Urine Leukocyte Esterase 3+ /uL (Negative) Urine RBC 65 /hpf (0 - 4) Urine Microscopic WBC 88 /HPF (0-5) Urine Squamous Epithelial Cells Few /hpf (<5) Urine Calcium Oxalate Crystals Few (None Seen) Urine Bacteria Mod /hpf (None Seen) Urine Mucus Few (None Seen) Urine Glucose Normal mg/dL (Normal) Other Laboratory Tests 07/27/25 05:25 Brief Hx & Hospital Course: 44 yo female patient came in for dizziness and left flank pain related to nephritis. She was found to be septic with septic shock. She was started on IV fluids and given 3 L of IV fluid bolus. Patient was initiated on IV antibiotics and admitted for further observation and monitoring. Patient was admitted July 26, 2025 for flank pain and signs of pyelonephritis. Patient also had signs of sepsis with shock. She was given multiple liters of IV fluids. Patient's condition did improve. She was insistent on discharging today stating she was better. Her blood pressure was in the 90s to low 100s. Patient did not complain of any dizziness. She was transitioned to oral antibiotics and instructed to follow-up with her PCP in 1 week. The patient received proper medical treatment and medications. Vital signs, Imaging and Laboratory Work was monitored daily. All consults recommendations were followed as provided. There were no complaints or new complaints upon discharge, all questions and concerns were answered. Patient was advised to return to the ER or call 911 if any headaches, dizziness, shortness of breath, chest pain, bleeding, fevers, or worsening of medical condition. Patient/Family was counseled about treatment plan, medications, possible side effects, patient verbalized understanding. All questions were answered to the best of my ability. The patient symptoms improved and they are okay to be DC. Condition at Discharge: Stable Final Diagnosis/Problems List pyelonephritis sepsis with shock Discharge Disposition: Home Discharge Instruct/Medications Diet: Regular Activity: No Restrictions, As Tolerated Follow Up/Referral: pcp 1 week Scheduled Ciprofloxacin Hcl (Cipro), 1 TAB PO BID Scheduled PRN Ibuprofen Micronized (Ibuprofen), 600 MG PO Q6HP PRN Discharge Statement: "Patient was advised to return to the ER or call 911 if any headaches, dizziness, shortness of breath, chest pain, abdominal pain, bleeding, fevers, or worsening of medical condition. Patient was counseled about treatment plan, medications, possible side effects, patientverbalized understanding. All questions were answered to the best of my ability. This discharge took greater then 30 minutes in planning, reviewing documentation, counseling the patient, and discussing with other team members." ASSESSMENT ASSESSMENT Assessment pyelonephritis sepsis with shock DIMITRI JIMENEZ NP Jul 27, 2025 12:43
[2025-07-27 13:53] VITALS: BP 105/54; PULSE 96; RESP 18; TEMP 98.4; O2SAT 97
== END 2025-07-27 16:20 | disposition home or self-care (01) | DRG 720 ==
LOC: ER 10:23 → OVERFLOW 15:50 → EAST 17:00
PROVIDERS: ADMIT Nurse Practitioner; ATTEND Nurse Practitioner
DX: A41.9 Sepsis, unspecified organism (principal); R65.21 Severe sepsis with septic shock; N12 Tubulo-interstitial nephritis, not specified as acute or chronic; E66.9 Obesity, unspecified; Z79.1 Long term (current) use of non-steroidal anti-inflammatories (NSAID); Z79.899 Other long term (current) drug therapy; Z98.891 History of uterine scar from previous surgery; Z87.442 Personal history of urinary calculi; Z68.36 Body mass index [BMI] 36.0-36.9, adult
CPT/HCPCS: 36415; 74176; 80048; 80053; 81001; 83036; 85025; 87086; 96365; 96375; G0378; J1885